=== PATIENT | female | born 1965 | race Caucasian/White ===

== ENCOUNTER → 2020-01-29 08:35 | Outpatient (BNVA) | payer OTHER, SELFPAY | PROVIDERS: PCP Family Medicine; Visit Provider Hospitalist | DX: Z76.89 Persons encountering health services in other specified circumstances (principal) ==

== ENCOUNTER 2020-03-31 17:31 | Outpatient (REF) | payer OTHER, SELFPAY ==
--- NOTE | 2020-03-31 17:49 | XR_ITS ---
EXAMINATION: XR CHEST CLINICAL INFORMATION: Chest pain COMPARISON: Chest CT 04/29/2019 TECHNIQUE: 2 views of the chest were obtained. FINDINGS: Cardiac silhouette is normal in size. Similar mild asymmetric elevation of the right hemidiaphragm. No gross lobar consolidation. No pleural effusion or pneumothorax. Minimal degenerative changes of the thoracic spine. XR/XR chest 2V IMPRESSION: No acute pulmonary pathology.
== END 2020-03-31 17:32 | disposition home or self-care (01) ==
LOC: HO.XRAY 17:31
PROVIDERS: PCP Family Medicine; Visit Provider Hospitalist
DX: R07.9 Chest pain, unspecified (principal)
CPT/HCPCS: 71046

== ENCOUNTER 2021-01-18 07:59 | Outpatient (REF) | payer OTHER, SELFPAY ==
--- NOTE | 2021-01-18 17:44 | PFT_ITS ---
INDICATION: Asthma. SPIROMETRY: The FEV1 to FVC of 81% with an FEV1 of 2.51 L, which is 95% predicted, and an FVC of 3.1 L, which is 92% predicted. No significant response to bronchodilators noted. To note, the [id number] was decreased down to 72% predicted and did improve after bronchodilators were administered. Maximum voluntary ventilation 119% predicted. LUNG VOLUMES: Total lung capacity 100% predicted with an expiratory reserve volume of 49% predicted. DIFFUSION CAPACITY: DLCO 85% predicted. COMPARISONS: None available. INTERPRETATION: No obstructive nor restrictive ventilatory defects identified. No significant response to bronchodilators noted. Again, there is some evidence of small airways disease, which may be consistent with history of asthma. Lung volumes are within normal limits except for the expiratory reserve volume, which may be affected by an elevated BMI. Diffusion capacity is within normal limits. Clinical correlation warranted. Mango Acosta MD MR/MODL / [id number]
== END 2021-01-18 08:00 | disposition home or self-care (01) ==
LOC: HO.RESP 07:59
PROVIDERS: PCP Family Medicine; Visit Provider Hospitalist
DX: J45.909 Unspecified asthma, uncomplicated (principal)
CPT/HCPCS: 94060; 94727; 94729

== ENCOUNTER → 2021-01-24 08:27 | Outpatient (BNVA) | payer OTHER, SELFPAY | PROVIDERS: PCP Family Medicine; Visit Provider Hospitalist | DX: R07.9 Chest pain, unspecified (principal) ==